=== PATIENT | female | born 1965 | race Caucasian/White ===

== ENCOUNTER 2021-09-15 11:45 | Outpatient (RCR) | payer BC, MEDICARE, SELFPAY ==
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
[2021-09-10 14:05] VITALS: BMI 29.0
--- NOTE | 2021-09-13 09:56 | PC.ADMIT ---
Patient is a 56 year old female who was referred to Partial Hospitalization level of care by her therapist d/t mood instability. Patient has a diagnosis of Bipolar I d/o and has been experiencing mixed episodes described as having depression with some hypo almas with severely agitated, irritable mood. Reports poor sleep. She has stopped engaging in the activities that she used to do stating she had a tight schedule including daily walking however she is currently unable to leave the house by herself. Patient reports SI and reported she has had a plan for years however denied intent to act on the plan, stated the thoughts drift into her head and that she does not want to act on it. Reports protective factors are her kids and . Patient stated that is why she is in the program as she started to see her mood change and does not want to go into the hospital as she has been out of the hospital for a year and a half and this has been her longest period out of the hospital in 12 years. Patient reports her children left for college and she thinks this may be a trigger to decompensation. 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 Patient is alert and oriented x4. Patient presents with depressed mood, irritable affect in the beginning of the nursing assessment however she became less irritable as the assessment went on. Patient gave verbal permission to email her a copy of her safety plan. Medications reconciled with patient and patient's pharmacy. Patient not taking Cedro as prescribed only taking 600 mg of the 900 mg ordered. Jody Boyd HAND STEMMER aware.
--- NOTE | 2021-09-13 15:09 | PC.NURSE ---
Case opened in treatment team.
--- NOTE | 2021-09-16 16:58 | PC.NURSE ---
Pt called and LM stating she thought about it, and doesn't want to continue in PHP at this time. She said she is feeling relatively stable and is safe, and has realized that she is not in need of PHP and it's not a good fit at this time in light of how she is doing.
--- NOTE | 2021-09-16 17:10 | PC.NURSE ---
I called and LM for PEE Maria, pt's therapist, letting her know of pt's decision to discontinue PHP.
== END 2021-09-20 07:16 | disposition home or self-care (01) ==
LOC: HO.PHPA 11:45
PROVIDERS: PCP Nurse Practitioner; Visit Provider Psychiatry & Neurology Psychiatry
DX: F31.63 Bipolar disorder, current episode mixed, severe, without psychotic features (principal)
CPT/HCPCS: 90853